=== PATIENT | female | born 1975 | race African-American/Black ===

== ENCOUNTER 2020-05-16 23:33 | Emergency (ER) | payer OTHER ==
[~2020-05-16] VITALS: Ht 177.8 cm; Wt 68.0 kg
[~2020-05-16 23:33] MED LIST: DOXY100T51
[2020-05-16 23:35] VITALS: BP 130/91
== END 2020-05-16 23:35 | disposition left against medical advice (07) ==
LOC: EDBD 23:33 → ER 23:33
DX: F41.9 Anxiety disorder, unspecified (principal); Z53.21 Procedure and treatment not carried out due to patient leaving prior to being seen by health care provider

== ENCOUNTER 2022-03-30 18:53 | Emergency (ER) | payer OTHER ==
[~2022-03-30] VITALS: Ht 162.6 cm; Wt 104.3 kg
[2022-03-30 19:02] VITALS: BP 137/75
== END 2022-03-30 21:30 | disposition left against medical advice (07) ==
LOC: ER 18:53 → EDUNIT# 18:53 → EDBD 18:53 → ER 21:30
DX: R51.9 Headache, unspecified (principal); Z53.21 Procedure and treatment not carried out due to patient leaving prior to being seen by health care provider

== ENCOUNTER 2024-02-16 21:49 | Emergency (ER) | payer OTHER ==
[~2024-02-16] VITALS: Ht 162.6 cm; Wt 105.1 kg
[2024-02-16 22:17] VITALS: BP 139/77; PULSE 70; RESP 16; O2SAT 97
== END 2024-02-17 00:04 | disposition home or self-care (01) ==
LOC: ER 21:49
DX: M54.2 Cervicalgia (principal); R60.0 Localized edema; Z79.2 Long term (current) use of antibiotics

== ENCOUNTER 2024-05-17 02:03 | Emergency (ER) | payer OTHER ==
[~2024-05-17] VITALS: Ht 162.6 cm; Wt 102.4 kg
[2024-05-17 02:10] VITALS: BP 127/89; PULSE 74
[2024-05-17 02:15] VITALS: RESP 18; O2SAT 99
[2024-05-17 02:39] LABS: Basophils # (auto) 0 10 ^3/uL (0-0.2); Basophils % (auto) 0.5 % (0.0-2.0); Eosinophils # (auto) 0.1 10 ^3/uL (0-0.8); Eosinophils % (auto) 1.2 % (0.0-7.0); Hematocrit 45.4 % (36.0-46.0); Hemoglobin 15.3 g/dL (12.2-16.2); Lymphocytes # (auto) 2.4 10 ^3/uL (0.4-5.4); Lymphocytes % (auto) 25.4 % (10.0-50.0); Mean Corpuscular Hemoglobin 30.6 pg (28.0-32.0); Mean Corpuscular Hgb Conc. 33.6 g/dL (32.0-36.0); Mean Corpuscular Volume 91.1 fL (80.0-100.0); Monocytes # (auto) 0.7 10 ^3/uL (0-1.3); Monocytes % (auto) 7.5 % (0.0-12.0); Neutrophils # (auto) 6.3 10 ^3/uL (1.6-8.6); Neutrophils % (auto) 65.4 % (37.0-80.0); Nucleated Red Blood Cells % 0.1 %; Red Blood Cells 4.99 10^6/uL (4.0-5.20); Red Cell Distribution Width 14.6 % (11.8-14.3); White Blood Cell 9.6 10^3/uL (4.4-10.8)
[2024-05-17 02:54] LABS: Albumin 4.3 g/dL (3.2-4.8); Alkaline Phosphatase 60 U/L (46-116); Anion Gap 8 (5-15); Aspartate Aminotransferase 12 U/L (13-40); BUN/Creatinine Ratio 8.6 (10.0-20.0); Bilirubin, Total 0.3 mg/dL (0.2-1.0); Blood Urea Nitrogen 13 mg/dL (9-23); Calcium 9.5 mg/dL (8.7-10.4); Carbon Dioxide 24 mmol/L (20-30); Chloride 107 mmol/L (98-107); Glucose 112 mg/dL (74-106); Potassium 4.3 mmol/L (3.5-5.1); Sodium 139 mmol/L (136-145); Total Protein 7.1 g/dL (5.7-8.2)
[2024-05-17 02:55] LABS: Alanine Aminotransferase 9 U/L (7-40)
== END 2024-05-17 03:52 | disposition left against medical advice (07) ==
LOC: ER 02:03
DX: R06.02 Shortness of breath (principal); I12.9 Hypertensive chronic kidney disease with stage 1 through stage 4 chronic kidney disease, or unspecified chronic kidney disease; N18.9 Chronic kidney disease, unspecified
CPT/HCPCS: 36415; 71045; 80053; 84484; 85025; 85379